=== PATIENT | female | born 1970 | race Caucasian/White ===

== ENCOUNTER 2019-04-07 22:30 | Emergency (ER) | payer BC, OTHER ==
[~2019-04-07] VITALS: Ht 160 cm; Wt 128.8 kg
[~2019-04-07 22:30] MED LIST: LISINOPRIL PO; LISINOPRIL-HCT1 EACH PO
--- NOTE | 2019-04-08 00:02 | Diagnostic Imaging Report ---
Exam: Left ankle 3 views History: Pain Comparison: None. Findings: No acute, displaced fracture or dislocation. Ankle mortise is maintained. Tibial plafond and talar dome are intact. Soft tissues unremarkable. Impression: No acute osseous abnormality. Signed by: Dr. Gael North M.D. on 04/07/2019 11:59 PM
== END 2019-04-08 00:43 | disposition home or self-care (01) ==
LOC: ER 22:30
DX: M25.572 Pain in left ankle and joints of left foot (principal); S93.491A Sprain of other ligament of right ankle, initial encounter
CPT/HCPCS: 99283